=== PATIENT | male | born 1960 | race Caucasian/White ===

== ENCOUNTER → 2020-08-12 | Day surgery (SDC) | payer BC ==
[~2020-08-12] MED LIST: Acetaminophen 500 MG TAB ONE; Acetaminophen 500 MG TAB PO SCH; BAMLANIVIMAB 700 MG in Sodium Chloride 0.9% 250 ML 250 ML IVPB SCH; diphenhydrAMINE 50 MG/ML VIAL IVP SCH; diphenhydrAMINE 50 MG/ML VIAL ONE
== END ==
LOC: CSHSDC/OP 11:12
PROVIDERS: ATTEND Family Medicine
DX: Z23 Encounter for immunization (principal); U07.1 COVID-19
CPT/HCPCS: J1200

== ENCOUNTER 2021-10-24 08:04 | Outpatient (CLI) | payer BC | END 2021-10-24 08:05 | disposition home or self-care (01) | LOC: CSHULT 08:04 | PROVIDERS: ATTEND Internal Medicine | DX: K74.60 Unspecified cirrhosis of liver (principal); R60.0 Localized edema; K72.90 Hepatic failure, unspecified without coma; K76.6 Portal hypertension; R16.1 Splenomegaly, not elsewhere classified | CPT/HCPCS: 76705 ==

== ENCOUNTER 2022-08-13 08:53 | Outpatient (CLI) | payer BC | END 2022-08-13 08:54 | disposition home or self-care (01) | LOC: CSHULT 08:53 | PROVIDERS: ATTEND Internal Medicine | DX: K74.60 Unspecified cirrhosis of liver (principal); R60.0 Localized edema; K76.82 Hepatic encephalopathy; R16.1 Splenomegaly, not elsewhere classified | CPT/HCPCS: 76700 ==

== ENCOUNTER 2023-11-09 10:10 | Emergency (ER) | payer BC ==
[2023-11-09 10:56] LABS: #Basophils 0.06 10x3/uL (0.0-0.2); #Eosinphils 0.17 10x3/uL (0.0-0.5); #Monocytes 0.49 10x3/uL (0.0-1.1); #Neutrophils 3.09 10x3/uL (1.5-8.4); %Basophils 1.3 % (0.0-2.0); %Eosinophils 3.6 % (0.0-6.0); %Lymphocytes 19.7 % (18.0-47.0); %Monocytes 10.3 % (0.0-10.0); %Neutrophils 64.9 % (40.0-75.0); Hematocrit 36.4 % (38.8-50.0); Hemoglobin 13.4 g/dL (13.5-17.5); Mean Corpuscular HGB CONC 36.8 g/dL (32.0-36.0); Mean Corpuscular Hemoglobin 37.3 pg (27.0-33.0); Mean Corpuscular Volume 101.4 fL (81.2-95.1); Mean Platelet Volume 10.1 fL (7.4-10.4); Platelet Count 87 10x3/uL (150-450); RBC Distribution Width 13.2 % (11.5-14.5); Red Blood Cell (RBC) Count 3.59 10x6/uL (4.32-5.72); White Blood Cell (WBC) Count 4.8 10x3/uL (3.5-10.5)
[2023-11-09 10:58] LABS: INR-International Normal Ratio 1.3; PTT 29.3 sec (22.0-33.0); Prothrombin Time 13.4 sec (9.5-12.1)
[2023-11-09 11:02] LABS: ALT (SGPT) 30 U/L (8-55); AST (SGOT) 51 U/L (5-34); Alkaline Phosphatase 113 U/L (40-110); Anion Gap 12 mmol/L (10-20); BUN (Urea Nitrogen) 14 mg/dL (8.4-25.7); Calc. Creatinine Clearance 0 mL/min (70-130); Carbon Dioxide 25 mmol/L (23-31); Chloride 104 mmol/L (98-107); Estimated GFR 100; Globulin 3.1 g/dL (2.4-3.5); Glucose 98 mg/dL (80-115); Lipase 51 U/L (8-78); Magnesium 1.8 mg/dL (1.6-2.6); Potassium 3.9 mmol/L (3.5-5.1); Protein, Total 6.1 g/dL (5.8-8.1); Sodium 137 mmol/L (136-145)
== END 2023-11-09 16:44 | disposition home or self-care (01) ==
LOC: CSHERS 10:10
DX: E87.70 Fluid overload, unspecified (principal); Z55.6 Problems related to health literacy
CPT/HCPCS: 36415; 71045; 80053; 83605; 83690; 83735; 85025; 85610; 85730

== ENCOUNTER 2025-04-27 14:01 | Outpatient (CLI) | payer BC | END 2025-04-27 14:02 | disposition home or self-care (01) | LOC: CSHMAMMO 14:01 | PROVIDERS: ATTEND Specialist | DX: N62 Hypertrophy of breast (principal); R92.333 Mammographic heterogeneous density, bilateral breasts | CPT/HCPCS: 77066; G0279 ==